=== PATIENT | male | born 1955 | race Caucasian/White ===

== ENCOUNTER → 2016-04-20 | Outpatient (CLI) | payer BC | END | disposition home or self-care (01) | LOC: LABPAT 15:28 | PROVIDERS: ATTEND Orthopaedic Surgery | DX: Z01.812 Encounter for preprocedural laboratory examination (principal) | CPT/HCPCS: 87070 ==

== ENCOUNTER → 2016-05-15 | Outpatient (CLI) | payer BC | END | disposition home or self-care (01) | LOC: LABPAT 08:22 | PROVIDERS: ATTEND Orthopaedic Surgery | DX: Z01.818 Encounter for other preprocedural examination (principal); M16.11 Unilateral primary osteoarthritis, right hip | CPT/HCPCS: 86850; 86900; 86901 ==

== ENCOUNTER → 2016-05-18 | Outpatient (CLI) | payer BC ==
[2016-05-18 07:23] LABS: Partial Thromboplastin Time 24.8 sec (22.0-30.0); Prothrombin Time 10.1 sec (9.0-12.0)
[2016-05-18 07:26] LABS: Potassium 4.8 mmol/L (3.5-5.1)
[2016-05-18 07:31] LABS: Basophils # (A) 0.1 k/uL (0-0.2); Basophils % (A) 1 %; CH 29.9; CHCM 33.6; Eosinophils # (A) 0.3 k/uL (0-0.7); Eosinophils % (A) 5 %; HDW 2.61; HGB 15.3 gm/dL (13.0-17.5); Luc # (Auto) 0.24; Luc % (Auto) 4; Lymphocytes # (A) 1.5 k/uL (1.0-4.8); Lymphocytes % (A) 24 %; MCH 29.1 pg (25.0-35.0); MCHC 32.6 g/dL (31.0-37.0); MCV 89.3 fL (80.0-100.0); Mean Platelet Volume 6.9; Monocytes # (A) 0.5 k/uL (0-1.0); Monocytes % (A) 7 %; Neutrophils # (A) 3.5 k/uL (1.3-7.7); Neutrophils % (A) 57 %; RBC 5.26 m/uL (4.30-5.90); RDW 13.6 % (11.5-15.5); WBC 6.1 k/uL (3.8-10.6); WBC (Perox) 6.29
== END | disposition home or self-care (01) ==
LOC: LABPAT 06:46
PROVIDERS: ATTEND Orthopaedic Surgery
DX: Z01.812 Encounter for preprocedural laboratory examination (principal); Z79.01 Long term (current) use of anticoagulants
CPT/HCPCS: 80051; 85025; 85610; 85730

== ENCOUNTER 2016-05-22 05:52 | Inpatient (IN) | payer BC ==
[2016-05-11 14:59] VITALS: BMI 26.9
--- NOTE | 2016-05-21 13:26 | HP ---
DATE OF ADMISSION: 05/22/2016 Evens Durant is a 60-year-old patient seen with symptomatic right hip osteoarthritis. After having treatment options discussed, he elected to proceed with direct anterior right total hip arthroplasty. Medical clearance was provided by Dr. Mann Wynn. His past medical history is gastroesophageal reflux disease, osteoarthritis. Past surgical history is left shoulder arthroscopy. DAILY MEDICATIONS: 1. Naprosyn. 2. Nexium. 3. Zantac. ALLERGIES: CODEINE. SOCIAL HISTORY: Patient denies current tobacco use. Physical evaluation of the right hip: There is diffuse tenderness about the hip girdle, limited range of motion right hip with severe pain, positive hip impingement sign, diffuse weakness about the hip girdle. The right lower extremity is approximately 1 inch shorter than the left. Straight leg raise is negative. Distal neurovascular exam is intact. Radiographs of the right hip reveal severe osteoarthritis. IMPRESSION: Right hip osteoarthritis. PLAN: Direct anterior right total hip arthroplasty.
[~2016-05-22 05:52] MED LIST: ACETAMINOPHEN TAB 500 MG TAB PO ONE; DEXAMETHASONE SOD PHOSPHATE 10 MG/ML 1 ML VIAL IV ONE; HYDROmorphone 1 MG/ML 1 ML SYRINGE IVP PRN; LACTATED RINGERS 1,000 ML IV SCH; MELOXICAM 7.5 MG TAB PO ONE; MIDAZOLAM 2 MG/2 ML VIAL IV PRN; ONDANSETRON 4 MG/2 ML VIAL IVP ONE; SCOPOLAMINE 1.5MG/72HR PATCH TRANSDERM ONE; TRANEXAMIC ACID 1,000 MG in SODIUM CHLORIDE 0.9% 100 ML IVPB ONE; ceFAZolin 2 GM in SODIUM CHLORIDE 0.9% 100 ML IVPB ONE
[2016-05-22] MEDS ORDERED: LIDOCAINE 1% 20 ML VIAL (10MG/ML) FOR IV START INTRADERMA ONE (06:46)
[2016-05-22] MEDS ORDERED: KETAMINE 10 MG/ML 20 ML VIAL ONE (07:25)
[2016-05-22] MEDS ORDERED: MIDAZOLAM 2 MG/2 ML VIAL ONE (07:25)
[2016-05-22] MEDS ORDERED: TRANEXAMIC ACID 1,000 MG/10 ML VIAL ONE (07:25)
[2016-05-22] MEDS ORDERED: fentaNYL (PF) 50 MCG/ML 2 ML AMP ONE (07:25)
[2016-05-22] MEDS ORDERED: PROPOFOL 10 MG/ML 20 ML VIAL IV ONE (07:25)
[2016-05-22] MEDS ORDERED: SODIUM CHLORIDE 0.9% 100 ML BAG ONE (07:25)
[2016-05-22] MEDS ORDERED: ceFAZolin 3,000 MG in SODIUM CHLORIDE 0.9% IRRIGATIO 3,000 ML IRRIGATION ONE (07:28)
[2016-05-22] MEDS: ROPIVACAINE 246.25 MG, EPINEPHrine 0.5 MG, KETOROLAC 30 MG, cloNIDine HCL/PF 80 MCG, WA... MISCELLANE ONE ×10 (08:03→09:23)
[2016-05-22] MEDS ORDERED: LACTATED RINGERS 1,000 ML IV ONE (08:19)
--- NOTE | 2016-05-22 09:37 | FL ---
FLUOROSCOPY 37 seconds of fluoroscopy time were utilized during right anterior hip replacement. 1 images document the procedure.
[2016-05-22] MEDS ORDERED: HYDROcodone/APAP 7.5-325MG 1 EACH TAB PO PRN (09:54)
[2016-05-22] MEDS ORDERED: HYDROmorphone 1 MG/ML 1 ML SYRINGE IVP PRN ×3 (09:54)
[2016-05-22] MEDS ORDERED: ONDANSETRON 4 MG/2 ML VIAL IVP PRN (09:54)
[2016-05-22] MEDS ORDERED: NALOXONE 0.4 MG/ML 1 ML VIAL IV PRN (09:54)
--- NOTE | 2016-05-22 09:54 | P.OP ---
Date of Procedure: 05/22/16 Preoperative Diagnosis: Right hip osteoarthritis Postoperative Diagnosis: Right hip osteoarthritis Procedure(s) Performed: Direct anterior right total hip arthroplasty Implants: 1. Depuy Corail cementless femoral stem KA size 18 standard collar 2. Depuy pinnacle acetabular shell 64 mm 3. Depuy polyethylene acetabular liner +4 neutral 36 mm ID 64 mm OD 4. Biolox delta ceramic femoral head +1.5 36 mm Anesthesia: local, spinal Surgeon: Romulo Hollis Registered Medical Transcriptionist #1: Francois Alvarenga Estimated Blood Loss (ml): 350 Pathology: other (Femoral head) Condition: stable Disposition: PACU Indications for Procedure: 60-year-old patient seen with progressive right hip pain consistent with symptomatic osteoarthritis. After having treatment options discussed, he elected to proceed with right total hip arthroplasty. Operative Findings: See description of procedure Description of Procedure: The patient was taken to the operative suite. Patient underwent a spinal anesthetic by the department of anesthesia. Patient was then transferred to the [place] table. Patient was given preoperative IV antibiotics and TXA. Both lower extremities were placed in standard leg spars. The hip was then prepped and draped in the normal sterile orthopedic fashion. A standard anterior incision was made beginning 3 cm lateral and 1 cm distal to the ASIS extending 10 cm. Dissection was then carried down through the subcutaneous soft tissues down to the fascia overlying the tensor fascia kermit. An incision was now made through the fascia. Careful dissection was taken down exposing the tensor fascia kermit muscle. A Cobra retractor was now placed along the medial femoral neck and a second one along the lateral femoral neck. The venous circumflex vessels were now identified, cauterized and clipped. We identified the anterior hip capsule. An incision was made through the hip capsule along the lateral border. Tag sutures were then placed along the anterior capsule and lateral capsule. We then performed a capsulotomy. Retractors were now placed around the femoral neck itself. A Cobra retractor was now placed along the anterior acetabulum. Good exposure was now noted of the femoral head/neck complex. Residual labrum was debrided out. We placed the extremity into 3 turns of fine traction. We were then able to introduce a skid in between the femoral head and acetabulum. A placed a awl into the femoral head. We took 2 turns of traction off the extremity. Rotation was now released. The femoral head was then dislocated without difficulty. There was advanced osteoarthritis of both femoral head and acetabulum. Additional releasing was performed of the capsule. The head was then reduced. All traction was released. A femoral neck cut was now made with a sagittal saw. It was completed with an osteotome at the lateral neck area. The femoral head was now removed without difficulty. The extremity was now rotated to 60 of external rotation. It was locked in position. Residual labrum was now debrided out. Serial reaming was performed of the acetabulum. Once we reached the appropriate size and a trial was position and fit nicely. The appropriate size was now chosen opened and made available. The wound was irrigated with pulse lavage mechanical irrigation. It was introduced into the acetabulum without difficulty. The C-arm/ fluoroscopy was now brought into the operative field. We made sure we had a true AP pelvic view. We now under direct C-arm/fluoroscopy introduced into the acetabular component with appropriate version and inclination. It was well seated and stable. The C-arm was pulled back. An appropriate liner was introduced and clicked into position. It was felt to be stable. At this point retractors were removed. The extremity was now placed into 130 external rotation with no traction. The leg was now dropped to the ground and adducted. Appropriate retractors were now positioned along the proximal femur. We also placed our femoral look into position. Additional capsular releasing was performed to gain access to the proximal femur. We now used a box osteotome. A canal finder was now utilized. Serial broaching was now performed until we reached the appropriate size with good overall rotational stability. Appropriate calcar planing was performed. A trial head/neck was placed into position. The hip was now reduced. The C-arm/fluoroscopy was brought back into the operative field. A spot film was obtained of the nonoperative hip. A spot film was obtained of the trial components. Overlays were performed, we noted good overall alignment and positioning for determining leg length. The C- arm/fluoroscopy was pulled back. Retractors were repositioned and the hip was dislocated. The leg was again taken down to the ground and adducted. Appropriate retractors were repositioned as well as the femoral hook. All trial components were removed. The femoral implant was opened along with the femoral head. The wound was irrigated with pulse lavage mechanical irrigation. The deep soft tissues were infiltrated with local analgesic. The femoral implant was introduced with good purchase and fixation noted. The femoral head was introduced with good positioning and fixation noted. Retractors were now removed. The hip was now reduced. There appeared be good positioning of the hip. This was confirmed on fluoroscopy and a spot film was obtained to document that. A second gram of TXA was given. Bipolar cautery had been utilized intermittently through the procedure for hemostasis. The wound was irrigated copiously with pulse lavage mechanical irrigation. The superficial soft tissues were infiltrated local analgesic. The fascia was repaired with Vicryl suture. The subcutaneous soft tissues were repaired in layers with Vicryl suture. The skin was approximated with pernio/Dermabond. Sterile dressings were applied. Patient was then awakened, transferred to a bed and taken to recovery in stable condition. Gennaro WEBER assisted with the procedure.
[2016-05-22] MEDS: LACTATED RINGERS 1,000 ML IV SCH (11:58)
[2016-05-22] MEDS ORDERED: MULTIVITAMINS, THERA 1 EACH TAB PO SCH (12:00)
[2016-05-22] MEDS: HYDROcodone/APAP 7.5-325MG 1 EACH TAB PO PRN ×2 (12:57→18:03)
--- NOTE | 2016-05-22 13:18 | P.CONS ---
History of Present Illness - Reason for Consult Consult date: 05/22/16 medical management Requesting physician: Romulo Hollis - Chief Complaint Right total hip arthroplasty, GERD, elevated blood pressure, BPH - History of Present Illness 60-year-old male one of my office patient with past medical history of hyperlipidemia, GERD, BPH who has suffered from severe arthritis of the right knee for over few years had tried conservative management unsuccessful ended up seen Dr. Hollis and plan for elective right total hip arthroplasty, surgery was done today successfully with no major complication, patient was admitted to the floor after recovery is doing well so far his medication were resume pain has been well managed and controlled, patient is very stable hemodynamically. Review of Systems Constitutional: Reports fatigue, Reports weakness, Denies as per HPI, Denies anorexia, Denies chills, Denies chronic headaches, Denies chronic pain, Denies daytime sleepiness, Denies fever, Denies lethargy, Denies malaise, Denies night sweats, Denies poor appetite, Denies sweats, Denies weight gain, Denies weight loss Eyes: bilateral as per HPI Ears: bilateral: decreased hearing Ears, nose, mouth and throat: Reports sinus pain, Reports sinus pressure, Denies as per HPI, Denies ant. neck pain, Denies bleeding gums, Denies dental pain, Denies dysphagia, Denies epistaxis, Denies headache, Denies hoarseness, Denies mouth pain, Denies nasal congestion, Denies nasal discharge, Denies neck fullness/pressure, Denies neck lump, Denies nose pain, Denies odynophagia, Denies post-nasal drip, Denies swelling in mouth, Denies swelling in throat, Denies sore throat, Denies vertigo, Denies voice changes Cardiovascular: Reports lightheadedness, Reports orthopnea, Denies as per HPI, Denies chest pain, Denies claudication, Denies decreased exercise tolerance, Denies dyspnea on exertion, Denies edema, Denies high blood pressure, Denies irregular heart beat, Denies leg edema, Denies palpitations, Denies paroxysmal nocturnal dyspnea, Denies phlebitis, Denies rapid heart beat, Denies shortness of breath, Denies syncope Respiratory: Reports congestion, Reports cough, Denies as per HPI, Denies cough with sputum, Denies dyspnea, Denies excessive sputum, Denies hemoptysis, Denies home oxygen, Denies pain, Denies pain on inspiration, Denies pleurisy, Denies respiratory infections, Denies sleep apnea, Denies snoring, Denies wheezing Gastrointestinal: Reports bloating, Reports dyspepsia, Reports indigestion, Reports nausea, Denies as per HPI, Denies abdominal pain, Denies belching, Denies BRBPR, Denies change in bowel habits, Denies coffee ground emesis, Denies constipation, Denies diarrhea, Denies early satiety, Denies excessive gas , Denies heartburn, Denies hematemesis, Denies hematochezia, Denies jaundice, Denies lactose intolerance, Denies loss of appetite, Denies melena, Denies vomiting Genitourinary: Reports polyuria, Reports urinary frequency, Denies as per HPI, Denies decreased libido, Denies difficulties fathering child, Denies discharge, Denies dysuria, Denies erectile dysfunction, Denies flank pain, Denies genital pain, Denies genital sores, Denies hematuria, Denies impotence, Denies incontinence, Denies kidney stones, Denies nocturia, Denies testicular lump, Denies testicular pain, Denies urinary hesitancy, Denies urinary retention Musculoskeletal: Reports low back pain, Reports myalgias, Reports neck pain, Denies as per HPI, Denies arm numbness/tingling, Denies atrophy, Denies fractures, Denies frequent falls, Denies gait dysfunction, Denies hot joints, Denies leg numbness/tingling, Denies limitation of motion, Denies loss of height , Denies morning stiffness, Denies muscle cramps, Denies muscle weakness, Denies neck stiffness, Denies prior amputations, Denies redness of joints, Denies shooting arm pain, Denies shooting leg pain Musculoskeletal: bilateral: ankle pain Integumentary: Reports dryness, Reports pruritus, Reports rash, Denies as per HPI, Denies acne, Denies boils, Denies brittle nails, Denies change in hair/ nails, Denies color changes, Denies darkening of skin, Denies depigmentation, Denies foot/leg ulcers, Denies growths, Denies hirsutism, Denies lesions, Denies onychomycosis, Denies sores, Denies striae, Denies unusual bruising, Denies wounds Neurological: Denies as per HPI, Denies aphasia, Denies ataxia, Denies balance difficulties, Denies burning pain, Denies change in mentation, Denies change in smell/taste, Denies change in speech, Denies confusion, Denies convulsions, Denies double vision, Denies gait dysfunction, Denies head injury, Denies headaches, Denies hearing difficulties, Denies lack of coordination, Denies loss of vision, Denies memory loss, Denies migraines, Denies motor disturbance, Denies numbness, Denies paralysis, Denies paresthesias, Denies seizures, Denies sensory deficit, Denies spasticity, Denies syncope, Denies tic, Denies tingling , Denies transient paralysis, Denies tremors, Denies vertigo, Denies weakness, Denies visual changes Psychiatric: Denies as per HPI, Denies anhedonia, Denies anxiety, Denies anxiety attacks, Denies change in appetite, Denies change in libido, Denies change in sleep habits, Denies confusion, Denies depression, Denies difficulty concentrating, Denies disorientation, Denies hallucinations, Denies hopelessness , Denies hypersomnia, Denies insomnia, Denies irritability, Denies memory loss, Denies mood swings, Denies paranoia, Denies sadness/tearfulness, Denies sleep disturbances, Denies suicidal ideation Endocrine: Reports cold intolerance, Denies as per HPI, Denies deepening of the voice, Denies excessive sweating, Denies excessive thirst, Denies fatigue, Denies flushing, Denies heat intolerance, Denies high blood sugars, Denies increase in ring/shoe/hat size, Denies low blood sugars, Denies nocturia, Denies palpitations, Denies polydipsia, Denies polyphagia, Denies polyuria, Denies proptosis, Denies recent glucocorticoid use, Denies thyroid mass, Denies weight change Hematologic/Lymphatic: Denies as per HPI, Denies easy bleeding, Denies easy bruising, Denies lymphadenopathy, Denies lymphedema, Denies thrombophilia Allergic/Immunologic: Denies as per HPI, Denies allergic rhinitis, Denies anaphylaxis, Denies angioedema, Denies gluten intolerance, Denies persistent infections, Denies seasonal allergies, Denies urticaria, Denies wheezing Past Medical History Past Medical History: GERD/Reflux, Hyperlipidemia History of Any Multi-Drug Resistant Organisms: None Reported Past Surgical History: Orthopedic Surgery Additional Past Surgical History / Comment(s): EGD, COLONOSCOPY, HIATAL HERNIA REPAIR (2000) Past Anesthesia/Blood Transfusion Reactions: No Reported Reaction Additional Past Anesthesia/Blood Transfusion Reaction / Comm: muscle achiness across shoulder post hiatal hernia repair,no hx blood transfusion Past Psychological History: No Psychological Hx Reported Smoking Status: Former smoker Past Alcohol Use History: Occasional Additional Past Alcohol Use History / Comment(s): quit smoking 2000,smoked approx 20-30 yrs 1ppd Past Drug Use History: None Reported - Past Family History Father Family Medical History: Cancer Additional Family Medical History / Comment(s): COLON CANCER Mother Family Medical History: Chest Pain / Angina, Myocardial Infarction ([place]) Medications and Allergies Home Medications Medication Instructions Recorded Confirmed Type Multivitamin [Men's Multi-Vitamin] 1 tab PO DAILY 04/30/14 05/22/16 History Baclofen [Lioresal] 10 mg PO TID PRN 05/11/16 05/22/16 History Esomeprazole Magnesium [NexIUM] 40 mg PO HS 05/11/16 05/22/16 History Naproxen [Naprosyn] 500 mg PO Q12HR PRN 05/11/16 05/22/16 History Ranitidine HCl [Zantac] 150 mg PO DAILY@1500 PRN 05/11/16 05/22/16 History Allergies Allergy/AdvReac Type Severity Reaction Status Date / Time codeine AdvReac Unknown Nausea Verified 05/22/16 11:57 Physical Exam Vitals: Vital Signs Temp Pulse Resp BP Pulse Ox 05/22/16 11:23 96.9 F L 77 16 121/68 96 05/22/16 11:00 81 16 114/67 98 05/22/16 10:45 83 14 116/72 98 05/22/16 10:30 79 14 105/61 98 05/22/16 10:15 78 14 101/57 97 05/22/16 10:05 97.7 F 84 14 111/58 95 05/22/16 06:49 97.8 F 88 16 132/77 96 Intake and Output 05/21/16 05/22/16 05/22/16 22:59 06:59 14:59 Intake Total 200 1751 Output Total 600 Balance 200 1151 Intake: IV 200 1751 Output: Urine 250 Estimated Blood Loss 350 Other: Voiding Method Indwelling Catheter Weight 97.522 kg Patient Weight 05/23/16 06:59 Weight 97.522 kg - Constitutional General appearance: no average body habitus, cooperative, no disheveled, no mild distress, no morbidly obese, no acute distress, no obese, no severe distress, no thin - EENT Eyes: no abnormal pupil, no anicteric sclerae, no disc margins sharp, no edentulous, no EOMI, no PERRLA, no fundus normal, no photophobia, no dentition normal, no poor dentition, no ptosis, no scleral icterus, normal appearance ENT: no hard of hearing, no hearing grossly normal, no NA/AT, normal oropharynx , no other, no pharyngeal erythema, no thrush, no tonsillar exudates, no tonsillar swelling Ears: bilateral: normal - Neck Neck: no lymphadenopathy, normal ROM, no other, no rigidity, no stridor, no thyromegaly Carotids: bilateral: upstroke normal Thyroid: bilateral: normal size - Respiratory Respiratory: bilateral: CTA - Cardiovascular Rhythm: regular Heart sounds: normal: S1, S2 - Gastrointestinal General gastrointestinal: no absent bowel sounds, decreased bowel sounds, distended, no hepatomegaly, no hyperactive bowel sounds, no normal bowel sounds , no organomegaly, no rigid, no scaphoid, soft, no splenomegaly, no tenderness, no umbilical hernia, no ventral hernia - Integumentary incision in the right hip looks fine with no induration no hematoma. Integumentary: no calor, no cellulitis, no cyanotic, no decreased turgor, no flushed, no jaundiced, normal, no normal turgor, pale, rash, no ulcer - Musculoskeletal Musculoskeletal: gait normal, generalized weakness, strength equal bilaterally, no right sided weakness, no left sided weakness - Psychiatric Psychiatric: A&O x's 3, appropriate affect, intact judgment & insight Assessment and Plan Plan: 1 status post right total hip arthroplasty: Successful surgery anterior approach pain is well managed, continue to watch patient hemodynamic status was start PTOT later in the afternoon today or by tomorrow morning. Continue anticoagulation per orthopedic recommendation probably on Lovenox 40 mg subcutaneous daily and as an outpatient might benefit from aspirin. 2 severe GERD: Patient will be on Nexium 40 mg a day continue medication he is doing well with it as an outpatient. 3 BPH: Watch for any urinary retention Lorenzo catheter was taking out and patient is able to void so far will do UA. 4 hyperlipidemia: On diet control not on any medication currently. 5 DVT prophylaxis: Patient is on Lovenox subcutaneous currently. 6 chronic lower back pain: Has been doing well on naproxen seen and baclofen hold naproxen for now will continue patient on Ultram and Nathalie as needed and continue baclofen as needed. 7 GERD/GI prophylaxis: Patient was started on Pepcid and resume Nexium. CODE STATUS: Full code. Dr. Hollis thank you very much for the consult if I can be any further help to please let me know.
[2016-05-22] MEDS: traMADol 50 MG TAB PO SCH ×3 (15:16→22:09)
[2016-05-22] MEDS: ceFAZolin 2 GM in SODIUM CHLORIDE 0.9% 100 ML IVPB SCH (15:49)
[2016-05-22] MEDS ORDERED: PANTOPRAZOLE 40 MG TABLET PO SCH (18:00)
[2016-05-22] MEDS ORDERED: NON-FORMULARY DRUG (Esomeprazole Magnesium [Nexium] 40 MG) PO SCH (21:00)
[2016-05-22] MEDS ORDERED: SENNOSIDES-DOCUSATE SODIUM 1 EACH TAB PO SCH (21:00)
[2016-05-23] MEDS: ceFAZolin 2 GM in SODIUM CHLORIDE 0.9% 100 ML IVPB SCH (00:03)
[2016-05-23] MEDS: LACTATED RINGERS 1,000 ML IV SCH ×2 (00:04→11:10)
[2016-05-23 02:30] VITALS: RESP 16
[2016-05-23 07:35] LABS: Basophils % (A) 0 %; CH 29.6; CHCM 33.7; Eosinophils # (A) 0.1 k/uL (0-0.7); Eosinophils % (A) 1 %; HCT 36.7 % (39.0-53.0); HDW 2.59; HGB 12.5 gm/dL (13.0-17.5); Luc # (Auto) 0.21; Luc % (Auto) 2; Lymphocytes # (A) 1.3 k/uL (1.0-4.8); Lymphocytes % (A) 13 %; MCV 88.3 fL (80.0-100.0); Mean Platelet Volume 7.3; Monocytes # (A) 0.8 k/uL (0-1.0); Monocytes % (A) 8 %; Neutrophils # (A) 7.7 k/uL (1.3-7.7); Neutrophils % (A) 76 %; RBC 4.16 m/uL (4.30-5.90); RDW 13.4 % (11.5-15.5); WBC 10.1 k/uL (3.8-10.6); WBC (Perox) 10.42
[2016-05-23 08:36] VITALS: TEMP 98.3
[2016-05-23 08:38] VITALS: BP 123/65
[2016-05-23] MEDS: traMADol 50 MG TAB PO SCH ×2 (08:43→12:54)
[2016-05-23] MEDS ORDERED: FAMOTIDINE 20 MG TAB PO SCH (09:00)
[2016-05-23] MEDS ORDERED: ENOXAPARIN 40 MG/0.4 ML SYRINGE SQ SCH (09:00)
[2016-05-23] MEDS ORDERED: MELOXICAM 7.5 MG TAB PO SCH (09:00)
[2016-05-23 10:27] VITALS: PULSE 96
--- NOTE | 2016-05-23 11:04 | P.PN ---
Subjective Principal diagnosis: Status post right total hip arthroplasty Patient seen today resting in his hospital bed, he is family present with him. He is doing very well, he's ambulated with therapy. Urinary cath and removed. His pain is well-controlled. Patient denies headaches, lightheadedness, chest pain, shortness of breath, fever chills. Objective - Vital Signs Vital signs: Vital Signs Temp 98.3 F 05/23/16 07:00 Pulse 96 05/23/16 08:00 Resp 16 05/23/16 08:00 BP 123/65 05/23/16 08:00 Pulse Ox 94 L 05/23/16 08:00 Intake & Output 05/22/16 05/23/16 05/23/16 18:59 06:59 18:59 Intake Total 3031 720 480 Output Total 600 550 300 Balance 2431 170 180 Weight 97.522 kg 97.522 kg Intake: IV 2071 720 Lactated Ringers 1,000 ml 320 720 @ 80 mls/hr IV .[id number] [facility] Rx#:[id number] Oral 960 480 Output: Urine 250 550 300 Uretheral (Lorenzo) 550 200 Estimated Blood Loss 350 Other: Voiding Method Indwelling Catheter Indwelling Catheter Indwelling Catheter - Exam Right lower extremity: Incisions clean, dry and intact. Ecchymosis present on the medial and lateral aspect, minimal soft tissue swelling. Calf soft, no tenderness with palpation. Plantar flexion, dorsiflexion, EHL, FHL are intact. Sensory exam to light touch is intact, cap refills less than 2 seconds. - Labs CBC & Chem 7: 05/23/16 06:52 Labs: Abnormal Lab Results - Last 24 Hours (Table) 05/23/16 Range/Units 06:52 RBC 4.16 L (4.30-5.90) m/uL Hgb 12.5 L (13.0-17.5) gm/dL Hct 36.7 L (39.0-53.0) % Assessment and Plan Plan: Assessment: 1. Postop day #1 status post right total hip arthroplasty Plan: 1. Pain control, continue use of oral medication 2. Daily dressing changes/ice and elevate 3. Encourage incentive spirometer 4. GI and DVT prophylaxis, we'll discharge home on aspirin 325 mg twice a day 5. Medical recommendations 6. Discharge planning: Patient will be discharged home likely today Time with Patient: Less than 30
--- NOTE | 2016-05-23 11:08 | P.DS ---
Providers Date of admission: 05/22/16 05:52 Expected date of discharge: 05/23/16 Attending physician: Romulo Hollis Consults: 05/22/16 09:54 Consult Physician Routine Consulting Provider: Mann Wynn Reason/Comments: Medical management Do you want consulting provider notified?: Yes Primary care physician: Mann Wynn [facility] Course: Date of admission: 05/22/2016 Date of discharge: 05/23/2016 Admission diagnosis: Status post right total hip arthroplasty Discharge diagnosis: Same Attending physician: Dr. Hollis Surgical procedures: Right total hip arthroplasty Brief history: Patient is a 60-year-old male with a history of progressive primary right hip osteoarthritis. At this point patient has failed conservative treatment measures and has opted to proceed with a elective right total hip arthroplasty. Hospital course: Details of patient's surgery can be found in operative report. Patient tolerated the procedure well and was subsequently transported to orthopedic floor. Patient's orthopeidc and medical care was provided daily. Patient had daily laboratory tests performed for evaluation of overall blood counts. Patient had daily physical therapy to include strengthening range of motion as well as education with walker ambulation. Patient was treated with Lovenox for their postoperative DVT prophylaxis during their inpatient stay. Patient was noted to have a relatively uneventful postoperative course. Patient reported satisfactory pain control with oral pain medications by postoperative day 0. Patient showed satisfactory progress with physical therapy. Patient moved steadily through the program and had no difficulty meeting the goals by postoperative day 1. Given patient's otherwise satisfactory course and having met physical therapy goals, plan is to discharge patient home on postoperative day 1. Discharge condition/disposition: Patient will be discharged home in stable condition. Discharge medications: Instructions are given on resumption of patient's normal daily medications per primary care recommendation, in addition patient will be prescribed Wilder 7.5 mg/325 mg, tramadol 50 mg, aspirin 325 mg, Colace 100 mg. Discharge instructions: 1. Wound care and infection precautions, keep incision dry and covered while showering, no lotions, creams, moisturizers. No soaking, tubs, pools, hottubs. Do not scrub over the incision. 2. Weight-bear as tolerated with walker / cane until follow-up. 3. Ice and elevate when necessary. Do not exceed 20 minutes per hour with ice pack. 4. Utilize compression sleeve until seen at first follow up appointment. 5. Visiting nursing care. 6. Home physical therapy. 7. Pain meds and anticoagulants per prescription. 8. Pain medication has potential to cause constipation. Increase oral fluid and fiber intake. Contact primary care provider if you have not had a bowel movement within 48 hours after discharge 9. No anti-inflammatory medication until discussed at first post operative visit, this including Motrin, Aleve, Mobic, Diclofenac. 10. Follow up in office at 2 weeks postop with Gennaro Alvarenga PA-C 11. Follow up with your primary care doctor 7-10 days after discharge. 12. Contact [facility] with any questions, . Procedures: Right total hip arthroplasty Patient Condition at Discharge: Good Plan - Discharge Summary New Discharge Prescriptions: Aspirin 325 mg PO BID #60 tab Docusate [Colace] 100 mg PO DAILY #30 capsule HYDROcodone/APAP 7.5-325MG [Wilder 7.5] 1 - 2 each PO Q6HR PRN #60 tab PRN Reason: Pain traMADol HCl [Ultram] 50 mg PO Q6H PRN #40 tab PRN Reason: Pain Discharge Medication List Multivitamin [Men's Multi-Vitamin] 1 tab PO DAILY 04/30/14 [History] Esomeprazole Magnesium [NexIUM] 40 mg PO HS 05/11/16 [History] Ranitidine HCl [Zantac] 150 mg PO DAILY@1500 PRN 05/11/16 [History] Aspirin 325 mg PO BID #60 tab 05/23/16 [Rx] Docusate [Colace] 100 mg PO DAILY #30 capsule 05/23/16 [Rx] HYDROcodone/APAP 7.5-325MG [Wilder 7.5] 1 - 2 each PO Q6HR PRN #60 tab 05/23/16 [ Rx] traMADol HCl [Ultram] 50 mg PO Q6H PRN #40 tab 05/23/16 [Rx] Follow up Appointment(s)/Referral(s): Francois Alvarenga PAC [[facility]] - 06/07/16 1:50 pm Patient Instructions/Handouts: Joint Replacement Surgery (DC) Activity/Diet/Wound Care/Special Instructions: home care with [facility]- Orthopedic Discharge Instructions: 1. Wound care and infection precautions, keep incision dry and covered while showering, no lotions, creams, moisturizers. No soaking, pools, hot tubs. Do not scrub over incision. 2. Weight-bear as tolerated with walker / cane until follow-up. 3. Ice and elevate when necessary. Do not exceed 20 minutes per hour with ice pack. 4. Utilize compression sleeve until seen at first follow up appointment. 5. Visiting nursing care. 6. Home physical therapy. 7. Pain meds and anticoagulants per prescription. 8. Pain medication has potential to cause constipation. Increase oral fluid and fiber intake. Contact primary care provider if you have not had a bowel movement within 48 hours after discharge. 9. No anti-inflammatory medication until discussed at first post operative visit, this including Motrin, Aleve, Mobic, Diclofenac. 10. Follow up in office at 2 weeks postop with Gennaro Alvarenga PA-C 11. Follow up with your primary care doctor 7-10 days after discharge. 12. Contact [facility] with any questions, . Discharge Disposition: HOME WITH HOME HEALTH SERVICES
[2016-05-23] MEDS ORDERED: MULTIVITAMINS, THERA 1 EACH TAB PO SCH (12:00)
--- NOTE | 2016-05-23 14:29 | P.PN ---
Subjective 60-year-old male one of my office patient with past medical history of hyperlipidemia, GERD, BPH who has suffered from severe arthritis of the right knee for over few years had tried conservative management unsuccessful ended up seen Dr. Hollis and plan for elective right total hip arthroplasty, surgery was done today successfully with no major complication, patient was admitted to the floor after recovery is doing well so far his medication were resume pain has been well managed and controlled, patient is very stable hemodynamically. 05/23: Patient denies any new complaints. Pain is controlled. He is scheduled for discharge home today in stable condition. Objective - Vital Signs Vital signs: Vital Signs Temp 97.9 F 05/23/16 00:50 Pulse 96 05/23/16 00:50 Resp 16 05/23/16 00:50 BP 148/87 05/23/16 00:50 Pulse Ox 93 L 05/23/16 00:50 Intake & Output 05/22/16 05/23/16 05/23/16 18:59 06:59 18:59 Intake Total 3031 720 Output Total 600 550 Balance 2431 170 Weight 97.522 kg Intake: IV 2071 720 Lactated Ringers 1,000 ml 320 720 @ 80 mls/hr IV .[id number] [facility] Rx#:[id number] Oral 960 Output: Urine 250 550 Uretheral (Lorenzo) 550 Estimated Blood Loss 350 Other: Voiding Method Indwelling Catheter Indwelling Catheter - Exam General appearance: no average body habitus, cooperative, no disheveled, no mild distress, no morbidly obese, no acute distress, no obese, no severe distress, no thin - EENT Eyes: no abnormal pupil, no anicteric sclerae, no disc margins sharp, no edentulous, no EOMI, no PERRLA, no fundus normal, no photophobia, no dentition normal, no poor dentition, no ptosis, no scleral icterus, normal appearance ENT: no hard of hearing, no hearing grossly normal, no NA/AT, normal oropharynx , no other, no pharyngeal erythema, no thrush, no tonsillar exudates, no tonsillar swelling Ears: bilateral: normal - Neck Neck: no lymphadenopathy, normal ROM, no other, no rigidity, no stridor, no thyromegaly Carotids: bilateral: upstroke normal Thyroid: bilateral: normal size - Respiratory Respiratory: bilateral: CTA - Cardiovascular Rhythm: regular Heart sounds: normal: S1, S2 - Gastrointestinal General gastrointestinal: no absent bowel sounds, decreased bowel sounds, distended, no hepatomegaly, no hyperactive bowel sounds, no normal bowel sounds , no organomegaly, no rigid, no scaphoid, soft, no splenomegaly, no tenderness, no umbilical hernia, no ventral hernia - Integumentary incision in the right hip looks fine with no induration no hematoma. Integumentary: no calor, no cellulitis, no cyanotic, no decreased turgor, no flushed, no jaundiced, normal, no normal turgor, pale, rash, no ulcer - Musculoskeletal Musculoskeletal: gait normal, generalized weakness, strength equal bilaterally, no right sided weakness, no left sided weakness - Psychiatric Psychiatric: A&O x's 3, appropriate affect, intact judgment & insight - Labs CBC & Chem 7: 05/23/16 06:52 Labs: Abnormal Lab Results - Last 24 Hours (Table) 05/23/16 Range/Units 06:52 RBC 4.16 L (4.30-5.90) m/uL Hgb 12.5 L (13.0-17.5) gm/dL Hct 36.7 L (39.0-53.0) % Assessment and Plan Plan: 1 status post right total hip arthroplasty: Successful surgery anterior approach pain is well managed, continue to watch patient hemodynamic status was start PTOT later in the afternoon today or by tomorrow morning. Continue anticoagulation per orthopedic recommendation probably on Lovenox 40 mg subcutaneous daily and as an outpatient might benefit from aspirin. 2 severe GERD: Patient will be on Nexium 40 mg a day continue medication he is doing well with it as an outpatient. 3 BPH: Watch for any urinary retention Lorenzo catheter was taking out and patient is able to void so far will do UA. 4 hyperlipidemia: On diet control not on any medication currently. 5 DVT prophylaxis: Patient is on Lovenox subcutaneous currently. 6 chronic lower back pain: Has been doing well on naproxen seen and baclofen hold naproxen for now will continue patient on Ultram and [place] as needed and continue baclofen as needed. 7 GERD/GI prophylaxis: Patient was started on Pepcid and resume Nexium. CODE STATUS: Full code. Discharge plan: Home with [facility]. Impression and plan of care have been directed as dictated by the signing physician. Kimberly Le nurse practitioner acting as scribe for signing physician. Time with Patient: Greater than 30
== END 2016-05-23 14:41 | disposition home health service (06) | DRG 470 ==
LOC: 2ORMAIN 05:52 → 3SUR 09:58
PROVIDERS: ADMIT Orthopaedic Surgery; ATTEND Orthopaedic Surgery
PROC: 0SR904A Replacement of Right Hip Joint with Ceramic on Polyethylene Synthetic Substitute, Uncemented, Open Approach (ICD-10-PCS; principal; 2016-05-22 07:30)
DX: M16.11 Unilateral primary osteoarthritis, right hip (principal); E78.5 Hyperlipidemia, unspecified; R53.1 Weakness; G89.29 Other chronic pain; R03.0 Elevated blood-pressure reading, without diagnosis of hypertension; M54.5 Low back pain; N40.0 Benign prostatic hyperplasia without lower urinary tract symptoms; M21.751 Unequal limb length (acquired), right femur; K21.9 Gastro-esophageal reflux disease without esophagitis; Z87.891 Personal history of nicotine dependence; Z80.0 Family history of malignant neoplasm of digestive organs; Z82.49 Family history of ischemic heart disease and other diseases of the circulatory system; Z88.5 Allergy status to narcotic agent; Z79.1 Long term (current) use of non-steroidal anti-inflammatories (NSAID); Z79.899 Other long term (current) drug therapy
CPT/HCPCS: 73501; 80051; 85025; 85610; 85730; 86850; 86900; 86901; 88300

== ENCOUNTER → 2023-01-29 | Outpatient (CLI) | payer MEDICARE, BC ==
[2023-01-29 09:39] LABS: African American GFR (CKD) >90 (>60 ml/min/1.73 sqM); Blood Urea Nitrogen 13 mg/dL (9-20); Non-African American GFR(CKD) 81 (>60 ml/min/1.73 sqM)
--- NOTE | 2023-01-29 10:33 | CT ---
EXAMINATION TYPE: CT chest w con DATE OF EXAM: 01/29/2023 COMPARISON: None at this location HISTORY: SOLITARY PULMONARY NODULE CT DLP: 389.0 mGycm, Automated exposure control for dose reduction was used. CONTRAST: Performed injected with 100ml mL of Isovue 300. TECHNIQUE: Axial images were obtained at 5 mm thick sections. Reconstructed images are reviewed on [employer] computer in the coronal plane. FINDINGS: Portion of the thyroid visualized is normal. There is a 0.5 cm transverse dimension nodule posterior lateral right lung. Series 4 image 41. Some mild atelectatic type changes are within the posterior medial right lung base. No suspicious mediastinal or hilar adenopathy is evident. The ascending aorta diameter at the level of the main pulmonary artery is 3.8 cm. The main pulmonary artery diameter at the bifurcation is 2.[address] sections are obtained through the upper abdomen. Small hiatal hernia is present. IMPRESSION: 1. 0.5 cm nodular density posterior lateral right lung. Follow-up CT chest in 6 months is recommended . 2. Small hiatal hernia
== END | disposition home or self-care (01) ==
LOC: RADCTMAIN 08:51
PROVIDERS: ATTEND Internal Medicine Critical Care Medicine
DX: J98.4 Other disorders of lung (principal); K44.9 Diaphragmatic hernia without obstruction or gangrene; R91.1 Solitary pulmonary nodule
CPT/HCPCS: 82565; 84520; 71260; 36415; Q9967

== ENCOUNTER → 2024-01-23 | Outpatient (CLI) | payer MEDICARE, BC ==
[2024-01-23 10:05] LABS: African American GFR (CKD) 88 (>60 ml/min/1.73 sqM); Blood Urea Nitrogen 13 mg/dL (9-20); Non-African American GFR(CKD) 76 (>60 ml/min/1.73 sqM)
--- NOTE | 2024-01-23 10:36 | CT ---
EXAMINATION TYPE: CT chest w con CT DLP: 681 mGycm, Automated exposure control for dose reduction was used. DATE OF EXAM: 01/23/2024 10:27 AM COMPARISON: Chest 01/29/2023. CLINICAL INDICATION:Male, 68 years old with history of R91.1 SOLITARY PULMONARY NODULE; PHH, F/U LUNG NODULE. PRIOR ON PACS TECHNIQUE: Multiple axial images were obtained through the chest following the administration of 100 cc of Isovue 300. . Coronal and sagittal reformats reviewed. FINDINGS: LUNGS/ PLEURA: No pleural effusion or pneumothorax. Medial bilateral lower lobe stable scarring. Tra ce linear scarring within the lingula. No focal consolidation. Stable 7.6 mm ovoid right lower lobe p ulmonary nodule when measured with similar technique. Stable left lung base 4.3 mm pulmonary nodule ( series 4, image 58). No new or enlarging pulmonary nodules. AIRWAY: Patent. Traced secretions identified within the trachea. HEART: Size within normal limits.No pericardial effusion. Small coronary calcifications. MEDIASTINUM: No gross evidence of adenopathy. VASCULATURE: No aortic aneurysm. MUSCULOSKELETAL: Mild disc degeneration changes are present throughout the thoracolumbar spine. No ac moses osseous abnormality. SOFT TISSUES/LYMPH NODES: Mild bilateral gynecomastia. LOWER NECK: No significant findings. UPPER ABDOMEN: Post surgical changes at the GE junction from hernia repair. IMPRESSION: Couple of stable pulmonary nodules measuring up to 7.6 mm. No new or enlarging pulmonary nodules. Fo llow-up CT in one year is recommended. [facility], , 01/23/2024 10:33 AM
== END | disposition home or self-care (01) ==
LOC: RADCTMAIN 09:24
PROVIDERS: ATTEND Internal Medicine Critical Care Medicine
DX: R91.1 Solitary pulmonary nodule (principal); R91.8 Other nonspecific abnormal finding of lung field; N62 Hypertrophy of breast
CPT/HCPCS: 82565; 84520; 71260; 36415; Q9967

== ENCOUNTER 2024-09-03 07:47 | Day surgery (SDC) | payer BC, MEDICARE ==
[2024-09-03 08:04] VITALS: TEMP 97.4
[2024-09-03] MEDS: IV FLUID CONTINUATION 1,000 ML IV ONE (08:16)
[2024-09-03] MEDS: LACTATED RINGERS 1,000 ML IV SCH (08:23)
[2024-09-03] MEDS ORDERED: PROPOFOL 10 MG/ML 20 ML VIAL IV ONE (09:03)
--- NOTE | 2024-09-03 09:21 | P.PCN ---
Date of Procedure: 09/03/24 Procedure(s) Performed: BRIEF HISTORY: Patient is a 68-year-old pleasant white male scheduled for an elective colonoscopy as a part of screening for colon cancer and family history of colon cancer diagnosed in his father at age 80. PROCEDURE PERFORMED: Colonoscopy with snare polypectomy and Endo Clip placement. PREOPERATIVE DIAGNOSIS: Screening for colon cancer and family history of colon cancer. IV sedation per Anesthesia. PROCEDURE: After informed consent was obtained, the patient, was brought into the endoscopy unit. IV sedation was administered by Anesthesia under continuous monitoring. Digital rectal examination was normal. Initially the Olympus CF-160 flexible video colonoscope was then inserted in the rectum, gradually advanced into the cecum without any difficulty. Careful examination was performed as the scope was gradually being withdrawn. Ileocecal valve and the appendiceal orifice were visualized and appeared normal. Prep was excellent. Mucosa of the cecum, appeared normal. The ascending colon there was a 3 cm broad-based polyp that was removed by piecemeal snare polypectomy and complete polypectomy accomplished. Following polypectomy and Endo Clip placed to prevent post polypectomy. Rest of the ascending colon, transverse colon, descending colon, sigmoid colon, and rectum appeared normal. Scattered sigmoid diverticulosis. Retroflexion was performed in the rectum and no lesions were seen. The patient tolerated the procedure well. IMPRESSION: 3 cm broad-based ascending colon polyp status post piecemeal snare polypectomy followed by Endo Clip placement and complete polypectomy accomplished Scattered sigmoid diverticulosis. RECOMMENDATIONS: Findings of this examination were discussed with the patient as well as his family.. He was advised to follow-up with the biopsy results. If the biopsy reveals adenoma he can have repeat colonoscopy in 3 years.
[2024-09-03 10:00] VITALS: BP 141/85; PULSE 79; RESP 18
== END 2024-09-03 10:08 | disposition home or self-care (01) ==
LOC: ORWHC2ENDO 07:47
PROVIDERS: ATTEND Internal Medicine Gastroenterology
DX: Z12.11 Encounter for screening for malignant neoplasm of colon (principal); D12.2 Benign neoplasm of ascending colon; D12.4 Benign neoplasm of descending colon; K57.30 Diverticulosis of large intestine without perforation or abscess without bleeding; Z80.0 Family history of malignant neoplasm of digestive organs; E07.9 Disorder of thyroid, unspecified; E78.5 Hyperlipidemia, unspecified; K21.9 Gastro-esophageal reflux disease without esophagitis; Z79.899 Other long term (current) drug therapy; Z79.890 Hormone replacement therapy; Z88.5 Allergy status to narcotic agent
CPT/HCPCS: 45385; J2704; 88305